=== PATIENT | female | born 1950 | race African-American/Black ===

== ENCOUNTER 2022-07-02 16:12 | Outpatient (REF) | payer MEDICARE, SELFPAY ==
[2022-07-02 18:30] LABS: Vitamin B12 > 2000 pg/mL (200-900)
== END 2022-07-02 16:13 | disposition home or self-care (01) ==
LOC: HO.LAB 16:12
PROVIDERS: PCP Internal Medicine; Visit Provider Psychiatry & Neurology Neurology
DX: R41.89 Other symptoms and signs involving cognitive functions and awareness (principal)
CPT/HCPCS: 36415; 82607